=== PATIENT | female | born 1945 | race Caucasian/White ===

== ENCOUNTER 2020-07-11 07:56 | Outpatient (CLI) | payer MEDICARE, BC | END 2020-07-11 07:57 | disposition home or self-care (01) | LOC: CSHCT 07:56 | PROVIDERS: ATTEND Internal Medicine Cardiovascular Disease | DX: I65.23 Occlusion and stenosis of bilateral carotid arteries (principal) | CPT/HCPCS: 70498; 82565 ==

== ENCOUNTER 2021-03-26 13:50 | Outpatient (CLI) | payer MEDICARE, BC | END 2021-03-26 13:51 | disposition home or self-care (01) | LOC: CSHMAMMO 13:50 | PROVIDERS: ATTEND Internal Medicine | DX: Z12.31 Encounter for screening mammogram for malignant neoplasm of breast (principal) | CPT/HCPCS: 77063; 77067 ==

== ENCOUNTER 2022-04-10 15:01 | Outpatient (CLI) | payer MEDICARE, BC | END 2022-04-10 15:02 | disposition home or self-care (01) | LOC: CSHMAMMO 15:01 | PROVIDERS: ATTEND Obstetrics & Gynecology | DX: Z12.31 Encounter for screening mammogram for malignant neoplasm of breast (principal) | CPT/HCPCS: 77063; 77067 ==

== ENCOUNTER 2023-05-06 11:40 | Outpatient (CLI) | payer MEDICARE | END 2023-05-06 11:41 | disposition home or self-care (01) | LOC: CSHMAMMO 11:40 | PROVIDERS: ATTEND Internal Medicine | DX: Z12.31 Encounter for screening mammogram for malignant neoplasm of breast (principal) | CPT/HCPCS: 77063; 77067 ==